=== PATIENT | male | born 1995 | race Caucasian/White ===

== ENCOUNTER 2022-03-21 21:26 | Emergency (ER) | payer OTHER ==
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
[2022-03-21 22:37] LABS: Absolute Lymphocytes (CBC) 1.4 K/uL (0.7-4.9); Hematocrit 41.7 % (39.6-49.0); Lymphocytes % 25.6 % (15.3-44.8); MCV 86.7 fL (80-100); MPV 8.6 fL (7.6-11.3); RBC Red Blood Cell Count 4.81 M/uL (4.33-5.43)
[2022-03-21 22:49] LABS: Potassium 4.1 mmol/L (3.5-5.1)
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
[2022-03-22 05:02] VITALS: TEMP 98.3; O2SAT 98
[2022-03-22 05:04] VITALS: BP 111/84
== END 2022-03-21 23:12 | disposition home or self-care (01) ==
LOC: ER 21:26
DX: S09.90XA Unspecified injury of head, initial encounter (principal); S40.011A Contusion of right shoulder, initial encounter; V03.99XA Pedestrian with other conveyance injured in collision with car, pick-up truck or van, unspecified whether traffic or nontraffic accident, initial encounter; F17.210 Nicotine dependence, cigarettes, uncomplicated
CPT/HCPCS: 36415; 70450; 71045; 72125; 80048; 85025; 99283

== ENCOUNTER 2023-07-21 13:46 | Emergency (ER) | payer SELFPAY ==
--- OUTSIDE RECORDS SUMMARY | 2023-07-21 13:48 | XMS REPORT | Continuity of Care Document ---
Author Name Unknown Address [address] [facility] [id number] [facility] Address [address] [facility] [address] [place] [address] Care Team Providers Care Station Tender Name Role Phone PCP, PATIENT DOES NOT HAVE A Primary Care Physic ned Unavailable MAY HEARN S Attending Clinician Unavailable May Hearn MD Attending Clinician [phone] Doctor Unassigned, [place] Attending Clinician U luiz Muller MD, Jose Hudson Attending Clinician [phone] Rafi Miller DNP, Mary Ren Attending Clini rafael Payers Payer Name Policy Type Policy Number Effective Date Expirati on Date Source Problems Condition Name Condition Details Condition Category Status Onset Date Resolution Date Last Treatment Date Treating Clinician Comments Source No known active problems No known active problems Disease [facility] Allergies, Adverse Reactions, Alerts Allergy Name Allergy Type Status Severity Reaction(s) Onset Date Inactive Date Treating Clinician Comments Source NO KNOWN ALLERGIE S Drug Class Active [facility] Social History Social Habit Start Date Stop Date Quantity Comments Source Exposure to SARS-CoV-2 (event) 2022-02-14 00:00:00 2022-02-24 20:33:00 Not sure [facility] Sex Assigned At 1995 00:00:00 1995 00:00:00 [facility] Smoking Status Start Date Stop Date Source Tobacco smoking consumption unknown [facility] Medications Ordered Medication Name Filled Medication Name Start Date Stop Date Current Medication? Ordering Clinician Indication Dosage Frequency Signature (SIG) Comments Components Source ibuprofen 800 mg tablet 02-24 00:00: 00 Yes [id number] 800mg Take 1 tablet by mouth every 8 (eight) hours as needed for Alternate with [place] for pain scale 4-6. [facility] ibuprofen 800 mg tablet 02-24 00:00: 00 02-24 00:00 :00 No [id number] 800mg Take 1 tablet by mouth every 8 (eight) hours as needed for Alternate with [place] for pain scale 4-6. [facility] iohexol (OMNIPAQUE 350 BULK-100 mL) injection 100 mL 04-06 09:15: 00 04-06 09:03 :00 No 100mL 100 mL, Intravenou s, ONCE, 1 dose, Margot 04/06/20 at 0415, Routine [facility] ibuprofen (IBU) tablet 800 mg 04-23 22:30: 00 04-23 21:20 :00 No 800mg 800 mg, Oral, ONCE, 1 dose, 04/23/19 at 1730, KATHY [facility] CEPHALEXIN 250 MG ORAL CAP 10-28 00:00: 00 Yes [id number] 1 po tid [facility] CEPHALEXIN 250 MG ORAL CAP 10-28 00:00: 00 Yes [id number] 1 po tid [facility] CEPHALEXIN 250 MG ORAL CAP 10-28 00:00: 00 Yes [id number] 1 po tid [facility] CEPHALEXIN 250 MG ORAL CAP 10-28 00:00: 00 Yes [id number] 1 po tid [facility] Vital Signs Vital Name Observation Time Observation Value Comments S casa Systolic blood pressure 2022-02-25 01:34:00 138 mm[Hg] [facility] Diastolic blood pressure 2022-02-25 01:34:00 74 mm[Hg] [facility] Heart rate 2022-02-25 01:34:00 80 /min [facility] Body temperature 2022-02-25 01:34:00 37.11 Marianela [facility] Respiratory rate 2022-02-25 01:34:00 18 /min [facility] Body weight 2022-02-25 01:34:00 56.7 kg [facility] BMI 2022-02-25 01:34:00 19.01 kg/m2 [facility] Oxygen saturation in Arterial blood by Pulse oximetry 2022-02-25 01:34:00 100 /min [facility] Systolic blood pressure 2020-04-06 10:37:26 113 mm[Hg] [facility] Diastolic blood pressure 2020-04-06 10:37:26 83 mm[Hg] [facility] Heart rate 2020-04-06 10:37:26 71 /min [facility] Respiratory rate 2020-04-06 10:37:26 14 /min [facility] Oxygen saturation in Arterial blood by Pulse oximetry 2020-04-06 10:37:26 96 /min [facility] Body temperature 2020-04-06 10:26:35 36.78 [facility] Body height 2020-04-06 08:19:25 172.7 cm [facility] Body weight 2020-04-06 08:19:25 54.432 kg [facility] BMI 2020-04-06 08:19:25 18.25 kg/m2 [facility] Body temperature 2019-04-23 21:06:00 38.17 [facility] Systolic blood pressure 2019-04-23 19:36:00 119 mm[Hg] [facility] Diastolic blood pressure 2019-04-23 19:36:00 74 mm[Hg] [facility] Heart rate 2019-04-23 19:36:00 96 /min [facility] Respiratory rate 2019-04-23 19:36:00 20 /min [facility] Body height 2019-04-23 19:36:00 165.1 cm [facility] Body weight 2019-04-23 19:36:00 55.792 kg [facility] BMI 2019-04-23 19:36:00 20.47 kg/m2 [facility] Oxygen saturation in Arterial blood by Pulse oximetry 2019-04-23 19:36:00 96 /min [place] [facility] Procedures Procedure Date / Time Performed Performing Clinicia n Source NOTICE OF PRIVACY PRACTICES 2022-02-25 01:19:16 Doctor Unassigned, [place] [facility] CONSENT/REFUSAL FOR DIAGNOSIS AND TREATMENT 2022-02-25 01:18:56 Doctor Unassigned, [place] [facility] CT ABDOMEN PELVIS W CONTRAST 2020-04-06 09:08:20 Jose Muller [facility] CT THORAX W CONTRAST 2020-04-06 09:08:20 Jose Muller [facility] CT CERVICAL SPINE WO CONTRAST 2020-04-06 09:05:15 Jose Muller [facility] CT HEAD WO CONTRAST 2020-04-06 09:05:15 Jose Muller [facility] XR LUMBAR SPINE 2 VW 2020-04-06 08:53:07 Jose Muller [facility] XR PELVIS <3 VW 2020-04-06 08:53:07 Jose Muller [facility] LIPASE 2020-04-06 08:32:00 Jose Muller [facility] COMP. METABOLIC PANEL (23058) 2020-04-06 08:32:00 Jose Muller [facility] ETHANOL 2020-04-06 08:32:00 Jose Muller [facility] CBC WITH DIFF 2020-04-06 08:32:00 Jose Muller [facility] XR CHEST 1 VW 2019-04-23 22:10:00 Ankush Foley [facility] RAPID STREP SCREEN FOR GROUP A 2019-04-23 21:12:00 Ankush Foley [facility] ADC,CLC OR LCC ONLY - INFLUENZA A & B DIRECT ANTIGEN 2019-04-23 19:47:00 Ankush Foley [facility] Encounters Start Date/Time End Date/Time Encounter Type Admission Type Attending Clinicians Care Facility Care Department Encounter ID Source 2022-02-24 20:56:00 2022-02-24 22:11:00 Emergency X MAY HEARN [facility] ERT [id number] [facility] 2022-02-24 20:56:00 2022-02-24 22:11:00 Emergency May Hearn [facility] [id number] [id number] [facility] 2022-02-24 00:00:00 2022-02-24 00:00:00 Orders Only Doctor Unassigned, [place] [facility] [id number] [id number] [id number] [id number] [facility] 2020-04-06 03:23:00 2020-04-06 05:51:00 Emergency Jose Muller [facility] ([facility]) [id number] [id number] [id number] [facility] 2020-04-06 03:23:00 2020-04-06 03:23:00 Emergency X [facility] ERT [id number] [facility] 2019-04-23 16:05:31 2019-04-23 19:53:00 Emergency Rafi Apodacaught Marygerald Ren [facility] (CLC) [id number] [id number] [id number] [id number] [facility] Results Test Description Test Time Test Comments Results Result Co mments Source [facility] (17117[facility]2020-04-06 08:55:00* Test Item Value Reference Range Interpretation Comme nts NA (test code = 8320729351) 140 mmol/L 135-145 K (test code = 1210185476) 4.3 mmol/L 3.5-5 CL (test code = 8764354549) 106 mmol/L 98-108 CO2 TOTAL (test code = 6417291814) 29 mmol/L 23-31 AGAP (test code = 1115567491) 2-16 BUN (test code = 2201887229) 8 mg/dL 7-23 GLUCOSE (test code = 0565609731) 99 mg/dL 70-110 CREATININE (test code = 1215151782) 0.83 mg/dL 0.6-1.25 TOTAL BILI (test code = 4456025453) 0.5 mg/dL 0.1-1.1 CALCIUM (test code = 9192012386) 9.7 mg/dL 8.6-10.6 T PROTEIN (test code = 6302018601) 6.9 g/dL 6.3-8.2 ALBUMIN (test code = 6962177109) 4.3 g/dL 3.5-5 ALK PHOS (test code = 2163133430) 63 U/L 34-122 ALTv (test code = 1742-6) 17 U/L 5-50 AST(SGOT) (test code = 5196379669) 30 U/L 13-40 eGFR Calculation (Non-) (test code = 6656698248) mL/min/1.73m2 eGFR Calculation () (test code = 9427975971) mL/min/1.73m2 NILTON (test code = NILTON) Association of Glomerular Filtration Rate (GFR) and Staging of Kidney Disease* + -+ + ---+| GFR (mL/min/1.73 m2) ?| With Kidney Damage ?| ?Without Kidney Damage+ -------+ ------+ ---------+| ?>90 ?| ?Stage one ?| ? Normal ?+ --+ -+ ----+| ?60-89 ?| ?Stage two ?| ? Decreased GFR ? + -+ + ---+| ?30-59 ?| ?Stage three ?| ? Stage three ? + -+ + ---+| ?15-29 ?| ?Stage four ? | ? Stage four ?+ --+ -+ ----+| ?<15 (or dialysis) ? ?| ?Stage five ? | ? Stage five ?+ --+ -+ ----+ *Each stage assumes the associated GFR level has been in effect for at least three months. ?Stages 1 to 5, with or without kidney disease, indicate chronic kidney disease. Notes: Determination of stages one and two (with eGFR >59mL/min/1.73 m2) requires estimation of kidney damage for at least three months as defined by structural or functional abnormalities of the kidney, manifested by either:Pathological abnormalities or Markers of kidney damage (including abnormalities in the composition of the blood or urine or abnormalities in imaging tests). [facility]* Test Item Value Reference Range Interpretation Comme nts LIPASE (test code = 8811480583) 57 U/L 0-220 Lab Interpretation (test cod e = 46357-5) [facility] [id number] 08:43:00* Test Item Value Reference Range Interpretation Comme nts WBC (test code = 6690-2) See_Comment [Automated [employer]] The system which generated this result transmitted reference range: 4.20 - 10.70 10*3/?L. The reference range was not used to interpret this result as normal/abnormal. RBC (test code = 789-8) See_Comment [Automated [employer] ge] The system which generated this result transmitted reference range: 4.26 - 5.52 10*6/?L. The reference range was not used to interpret this result as normal/abnormal. HGB (test code = 718-7) 15.7 g/dL 12.2-16.4 HCT (test code = 4544-3) 47.0 % 38.4-49.3 MCV (test code = 787-2) 90.4 fL 81.7-95.6 MCH (test code = 785-6) 30.2 pg 26.1-32.7 MCHC (test code = 786-4) 33.4 g/dL 31.2-35 RDW-SD (test code = 46032-8) 41.5 fL 38.5-51.6 RDW-CV (test code = 788-0) 12.5 % 12.1-15.4 PLT (test code = 777-3) See_Comment [Automated [employer]] The system which generated this result transmitted reference range: 150 - 328 10*3/?L. The reference range was not used to interpret this result as normal/abnormal. MPV (test code = 61157-3) 10.5 fL 9.8-13 NRBC/100 WBC (test code = 4253760051) See_Comment [Automated me ssage] The system which generated this result transmitted reference range: 0.0 - 10.0 /100 WBCs. The reference range was not used to interpret this result as normal/abnormal. NRBC x10^3 (test code = 5523581765) <0.01 See_Comment [Automated me ssage] The system which generated this result transmitted reference range: 10*3/?L. The reference range was not used to interpret this result as normal/abnormal. GRAN MAT (NEUT) % (test code = 770-8) 63.4 % IMM GRAN % (test code = 0838946341) 0.20 % LYMPH % (test code = 736-9) 24.7 % MONO % (test code = 5905-5) 9.3 % EOS % (test code = 713-8) 1.8 % BASO % (test code = 706-2) 0.6 % GRAN MAT x10^3(ANC) (test code = 7516179443) 5.69 10*3/uL 1.99-6.95 IMM GRAN x10^3 (test code = 8774720267) <0.03 0-0.06 LYMPH x10^3 (test code = 731-0) 2.22 10*3/uL 1.09-3.23 MONO x10^3 (test code = 742-7) 0.83 10*3/uL 0.36-1.02 EOS x10^3 (test code = 711-2) 0.16 10*3/uL 0.06-0.53 BASO x10^3 (test code = 704-7) 0.05 10*3/uL 0.01-0.09 [facility] STREP SCREEN FOR GROUP [id number] 21:31:00* Test Item Value Reference Range Interpretation Comme nts Streptococcus pyogenes (grou p A) antigen (test code = 83757-4) Negative Negative Lab Interpretation (test cod e = 79285-5) [facility] - INFLUENZA A & B DIRECT [id number] 20:33:00* Test Item Value Reference Range Interpretation Comme nts Lab Interpretation (test cod e = 10624-4) Normal [facility]"
[2023-07-21 16:13] LABS: SARS-CoV-2 Antigen Rapid Res Negative (Negative)
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
--- NOTE | 2023-07-21 16:43 | ER ---
Nurse's Notes [facility] Name: Marcello Valdez Age: 28 yrs Sex: Male : 1995 Arrival Date: 07/21/2023 Time: 13:46 Bed DX5 Private MD: Diagnosis: Influenza due to other identified influenza virus with other respiratory manifestations Presentation: 07/21 13:50 Chief complaint: Patient states: cough, sore throat and runny nose X1 week. Pt also cm10 reports that his chest "is on fire when I cough.". Coronavirus screen: Vaccine status: Patient reports receiving the 2nd dose of the covid vaccine. Client denies travel out of the [place] in the last 14 days. Ebola Screen: Patient denies travel to an Ebola-affected area in the 21 days before illness onset. No symptoms or risks identified at this time. Initial Sepsis Screen: Does the patient meet any 2 criteria? No. Patient's initial sepsis screen is negative. Does the patient have a suspected source of infection? No. Patient's initial sepsis screen is negative. Risk Assessment: Do you want to hurt yourself or someone else? Patient reports no desire to harm self or others. Onset of symptoms was July 21, 2023. 13:50 Method Of Arrival: Ambulatory cm10 13:50 Acuity: NALINI 4 cm10 Historical: - Allergies: 13:52 No Known Allergies; cm10 - Home Meds: 13:52 None [Active]; cm10 - PMHx: 13:52 None; cm10 - PSHx: 13:52 left clavical; cm10 - Immunization history:: Adult Immunizations unknown. - Social history:: Smoking status: Reported history of juuling and/or vaping. - Family history:: not pertinent. - Hospitalizations: : No recent hospitalization is reported. Vital Signs: 13:50 BP 110 / 88; Pulse 69; Resp 16; Temp 97.3; Pulse Ox 97% on R/A; Weight 54.43 kg; Height cm10 5 ft. 5 in. ; Pain 4/10; 13:50 Body Mass Index 19.97 (54.43 kg, 165.1 cm) cm10 13:50 Pain Scale: Adult cm10 ED Course: 13:48 Patient arrived in ED. rg4 13:49 Mike Comer MD is Attending Physician. rn 13:52 Triage completed. cm10 13:52 Arm band placed on Patient placed in waiting room. cm10 Administered Medications: No medications were administered Outcome: 16:43 Discharge ordered by . rn 17:29 Patient left the ED. hb Signatures: Mike Comer MD MD rn Baxter, Heather, RN RN hb Garcia, Rubi rg4 Nu Smith RN RN cm10
[2023-07-21 17:37] VITALS: BP 110/88; TEMP 97.3; O2SAT 97
== END 2023-07-21 17:29 | disposition home or self-care (01) ==
LOC: ER 13:46
DX: J10.1 Influenza due to other identified influenza virus with other respiratory manifestations (principal); Z11.52 Encounter for screening for COVID-19
CPT/HCPCS: 36415; 87070; 87081; 87804; 87811; 99281

== ENCOUNTER 2024-06-15 03:21 | Emergency (ER) | payer SELFPAY ==
[2024-06-15] MEDS ORDERED: DIAZEPAM 5 MG TABLET ONE (03:50)
[2024-06-15] MEDS ORDERED: KETOROLAC 30 MG/ML INJ ONE (03:50)
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
== END 2024-06-15 06:37 | disposition home or self-care (01) ==
LOC: ER 03:21
DX: M79.9 Soft tissue disorder, unspecified (principal); S19.9XXA Unspecified injury of neck, initial encounter
CPT/HCPCS: 72125; 96372; 99284

== ENCOUNTER 2024-08-12 15:30 | Emergency (ER) | payer OTHER ==
--- NOTE | 2024-08-12 16:28 | ER ---
Nurse's Notes [facility] Name: Marcello Valdez Age: 29 yrs Sex: Male : 1995 Arrival Date: 08/12/2024 Time: 15:30 Bed IW3 Private MD: Diagnosis: Influenza due to identified novel influenza A virus Presentation: 08/12 16:15 Chief complaint: Patient states: he wasn't feeling well yesterday but went to work ap3 anyway. patient called into work today, and was informed he needed a dr's note. patient complains of cough, sore throat and runny nose. Coronavirus screen: Client presents with at least one sign or symptom that may indicate coronavirus-19. Ebola Screen: No symptoms or risks identified at this time. Initial Sepsis Screen: Does the patient meet any 2 criteria? HR > 90 bpm. Does the patient have a suspected source of infection? No. Patient's initial sepsis screen is negative. Risk Assessment: Do you want to hurt yourself or someone else? Patient reports no desire to harm self or others. Onset of symptoms is unknown. 16:15 Method Of Arrival: Ambulatory ap3 16:15 Acuity: NALINI 2 ap3 Triage Assessment: 16:24 General: Appears in no apparent distress. Behavior is calm, cooperative, appropriate ap3 for age. Pain: Denies pain. Neuro: Level of Consciousness is awake, alert, obeys commands, Oriented to person, place, time, situation, Appropriate for age. Cardiovascular: Patient's skin is warm and dry. Respiratory: Airway is patent Respiratory effort is even, unlabored, Respiratory pattern is regular, symmetrical. Historical: - Allergies: 16:23 No Known Allergies; ap3 - Home Meds: 16:23 None [Active]; ap3 - PMHx: 16:23 None; ap3 - PSHx: 16:23 left clavical; ap3 - Immunization history:: Client reports receiving the 2nd dose of the Covid vaccine. - Infectious Disease History:: Denies. - Social history:: Smoking status: Reported history of juuling and/or vaping. Screenin:23 Abuse screen: Denies threats or abuse. Nutritional screening: No deficits noted. ap3 Tuberculosis screening: No symptoms or risk factors identified. 16:25 [facility] ED Fall Risk Assessment (Adult) History of falling in the last 3 months, ap3 including since admission No falls in past 3 months (0 pts) Confusion or Disorientation No (0 pts) Intoxicated or Sedated No (0 pts) Impaired Gait No (0 pts) Mobility Assist Device Used No (0 pt) Altered Elimination No (0 pt) Score/Fall Risk Level 0 - 2 = Low Risk Oriented to surroundings, Maintained a safe environment, Educated pt \T\ family on fall prevention, incl call for assistance when getting out of bed, Assessed \T\ reinforced patient's understanding of fall precautions, Hourly rounding (assess needs \T\ fall precautionary measures) done, Used ambulatory aids as needed (educated on \T\ assisted with), Used gait belt as appropriate. Vital Signs: 16:15 BP 98 / 72; Pulse 130; Resp 17; Temp 98.7(O); Pulse Ox 98% on R/A; Weight 52.16 kg; ap3 Height 5 ft. 5 in. ; 16:27 Pulse 115; ec2 16:15 Body Mass Index 19.14 (52.16 kg, 165.1 cm) ap3 ED Course: 15:33 Patient arrived in ED. al6 15:33 Barron Auguste MD is Attending Physician. ec2 16:07 SARS RAPID Sent. iw 16:07 Influenza Screen (a \T\ B) Sent. iw 16:23 Triage completed. ap3 16:23 EKG done, by ED staff, reviewed by Barron Auguste MD. ap3 16:23 Arm band placed on left wrist. ap3 16:25 Patient has correct armband on for positive identification. ap3 16:25 Provided Education on: fluids. ap3 17:03 No provider procedures requiring assistance completed. Patient did not have IV access ap3 during this emergency room visit. Administered Medications: No medications were administered Medication: 16:24 VIS not applicable for this client. ap3 Outcome: 16:27 Discharge ordered by . ec2 17:03 Discharged to home ambulatory, ap3 17:03 Condition: good 17:03 Discharge instructions given to patient, Instructed on discharge instructions, follow up and referral plans. Demonstrated understanding of instructions, follow-up care, 17:03 Patient left the ED. ap3 Signatures: Monica Murphy RN RN Joycelyn Byrne RN RN ap3 Barron Auguste MD MD ec2 Jolene James
--- NOTE | 2024-08-12 16:28 | EDPHYS ---
Physician Documentation [facility] Name: Marcello Valdez Age: 29 yrs Sex: Male : 1995 Arrival Date: 08/12/2024 Time: 15:30 Bed IW3 Private MD: ED Physician Barron Auguste HPI: 08/12 16:28 This 29 yrs old Male presents to ER via Ambulatory with complaints of Flu ec2 Symptoms. 16:28 Patient arrives today for upper respiratory symptoms. Cough and cold symptoms, malaise, ec2 decreased p.o. intake, body aches.. Historical: - Allergies: 16:23 No Known Allergies; ap3 - Home Meds: 16:23 None [Active]; ap3 - PMHx: 16:23 None; ap3 - PSHx: 16:23 left clavical; ap3 - Immunization history:: Client reports receiving the 2nd dose of the Covid vaccine. - Infectious Disease History:: Denies. - Social history:: Smoking status: Reported history of juuling and/or vaping. ROS: 16:28 Constitutional: as per hpi ec2 Exam: 16:28 Constitutional: GEN: NAD Head: atraumatic Eyes: EOMI Ears: External ears are ec2 normal. CV: Tachycardia LUNGS: no respiratory distress, no wheezes or rales or rhonchi ABD: non-distended SKIN: no evidence of rashes MSK: no evidence of trauma Vital Signs: 16:15 BP 98 / 72; Pulse 130; Resp 17; Temp 98.7(O); Pulse Ox 98% on R/A; Weight 52.16 kg; ap3 Height 5 ft. 5 in. ; 16:27 Pulse 115; ec2 16:15 Body Mass Index 19.14 (52.16 kg, 165.1 cm) ap3 MDM: 16:17 Medical Screening Exam initiated ec2 16:28 Data reviewed: vital signs, nurses notes. ED course: Patient arrives today for ec2 evaluation of upper respiratory symptoms. Examination is unrevealing. Patient with initial tachycardia at 130, EKG obtained, independently reviewed and interpreted by me, shows sinus tachycardia, rate 115, no acute ST segment elevations, normals are nonactionable. Patient test positive for influenza. Patient has been symptomatic for the past 2 to 3 days, will forego Tamiflu administration. Will discharge home have the patient follow-up with PCP. Return precautions given. Patient without any chest pain or shortness of breath to indicate myocarditis. Patient otherwise systemically well-appearing, does have a slight tachycardia which is consistent with the patient's influenza.. 08/12 15:34 Order name: Influenza Screen (a \T\ B); Complete Time: 16:30 ec2 08/12 15:34 Order name: SARS RAPID; Complete Time: 16:30 ec2 08/12 16:30 Order name: EKG - Nurse/Tech; Complete Time: 16:38 ec2 Administered Medications: No medications were administered Disposition Summary: 08/12/24 16:27 Discharge Ordered Notes: Location: Home ec2 Condition: Stable ec2 Diagnosis - Influenza due to identified novel influenza A virus ec2 Followup: ec2 - With: Private Physician - When: - Reason: Re-evaluation by your physician Discharge Instructions: - Discharge Summary Sheet ec2 - Influenza, Adult ec2 Forms: - Work release form ec2 - Medication Reconciliation Form ec2 - Antibiotic Education ec2 - Prescription Opioid Use ec2 - Patient Portal Instructions ec2 - Leadership Thank You Letter ec2 Signatures: Dispatcher [employer] Joycelyn Hedrick RN RN ap3 Barron Auguste MD MD ec2
[2024-08-12 16:29] LABS: SARS-CoV-2 Antigen CONTROL BLUE LINE VIS/BG OK; SARS-CoV-2 Antigen Rapid Res Negative (Negative)
[2024-08-12 20:44] VITALS: BP 98/72; TEMP 98.7; O2SAT 98
--- NOTE | 2024-08-13 12:42 | EKG ---
Test Date: 2024-08-12 Test Time: 16:21:21 Specification Consultant: ALP MEASUREMENT RESULTS: Intervals: Rate: 115 ME: 116 QRSD: 84 QT: 308 QTc: 426 [place]: P: 79 ME: 116 QRS: 102 T: 52 INTERPRETIVE STATEMENTS: Sinus tachycardia Biatrial enlargement Abnormal ECG No previous ECG available for comparison Electronically Signed On 08-13-24 12:40:27 MAINTENANCE INSPECTOR by Cirilo Unger
== END 2024-08-12 17:03 | disposition home or self-care (01) ==
LOC: ER 15:30
DX: J09.X2 Influenza due to identified novel influenza A virus with other respiratory manifestations (principal); Z11.52 Encounter for screening for COVID-19; Z87.891 Personal history of nicotine dependence
CPT/HCPCS: 36415; 87804; 87811; 93005; 99283